=== PATIENT | female | born 1965 | race Caucasian/White ===

== ENCOUNTER 2017-03-07 18:05 | Emergency (ER) | payer MEDICAID, OTHER ==
[2017-03-07 18:36] VITALS: BP 149/88; PULSE 90; RESP 20; TEMP 98.3; O2SAT 98
[2017-03-07 18:37] VITALS: BMI 43.0
--- NOTE | 2017-03-08 14:47 | CARD ---
APPROVED REPORT EKG Measurement Heart [id number] MD 140P45 [id number] <Conclusion> Normal sinus rhythm Minimal voltage criteria for LVH, may be normal variant Inferior infarct, age undetermined Abnormal ECG
== END 2017-03-07 18:40 | disposition left against medical advice (07) ==
LOC: C.ER 18:05
DX: I10 Essential (primary) hypertension (principal); Z02.9 Encounter for administrative examinations, unspecified
CPT/HCPCS: 93005; LWBS0